=== PATIENT | female | born 1985 ===

== ENCOUNTER 2016-07-31 17:17 | Inpatient (IN) ==
[~2016-07-31 17:17] MED LIST: *HR* Nalbuphine 20 MG/ML AMPUL IVP PRN; Famotidine 20 MG/2 ML VIAL IVP PRN; Naloxone 0.4 MG/ML INJ IVP PRN; Ondansetron 4 MG/2 ML VIAL IVP PRN; Penicillin G Potassium 5,000,000 UNIT in D5% in Water (Mini-Bag+) 100 ML IVPB ONE
[2016-07-31] MEDS ORDERED: Ringers Solution, Lactated 1,000 ML ONE ×2 (17:18→18:13)
[2016-07-31 17:32] LABS: Basophils # 0.1 K/mcL (0.0-0.2); Basophils % 0.5 %; Eosinophils # 0.1 K/mcL (0.0-0.6); Eosinophils % 0.4 %; Hematocrit 36.1 % (35.3-44.9); Hemoglobin 12.2 g/dL (11.5-15.4); Immature Granulocytes % 4.6 % (0-4); Lymphocytes # 2.1 K/mcL (0.6-4.6); Mean Corpuscular HGB Conc 33.8 g/dL (31.6-35.5); Mean Corpuscular Hemoglobin 29.1 pg (28.0-33.3); Mean Corpuscular Volume 86.2 fL (83.0-100.0); Mean Platelet Volume 11.4 fL (9.4-12.4); Monocytes # 1.2 K/mcL (0.0-1.3); Monocytes % 7.2 %; Neutrophils # 11.9 K/mcL (1.6-8.9); Platelet Count 354 K/mcL (140-400); Red Blood Count 4.19 M/mcL (3.82-4.97); Red Cell Distribution Width 12.8 % (11.5-14.5); Segmented Neutrophils % 74.3 %
--- NOTE | 2016-07-31 17:32 | Anesthesia Evaluation PreOp ---
Date of Encounter: 07/31/16 Time of Encounter: 17:26 - Past History Planned Operation: vaginal del, , G1 ROM Cardiac History: Denies any Significant Hx Pulmonary History: Denies Any Significant HX HAND COLLATOR History: Denies Any Significant HX Other Medical History: Denies Any Significant HX Anesthesia History: No Prior Anesthetic Complications, Past Anesthesia : Yes (38wk) Anesthesia Exam - HEENT Pupil (Motor): Pupils equal Mallampati: II Teeth: Normal Oral Opening: Greater than 3 - HAND COLLATOR LOC: Oriented HAND COLLATOR Motor: Normal RUE, Normal LUE, Normal RLE, Normal LLE, Normal Face HAND COLLATOR Sensory: Normal: RUE, LUE, RLE, LLE, Face - Cardiac Rhythm: Regular Murmur: None - Pulmonary Breath Sounds: bilateral Clear Respiratory Effort: Symmetrical Anesthesia Assess/Plan ASA Score: 2 Modified [place] Scale for Level of Consciousness: Cooperative, oriented, and tranquil Anesthetic Plan: General, Regional Monitoring Plan: Standard Monitors
[2016-07-31] MEDS ORDERED: Epidural Premix (fent/bupiv) 110 ML EP ONE ×2 (17:33→22:59)
--- NOTE | 2016-07-31 17:34 | OB/GYN History & Physical ---
Date of Encounter: 07/31/16 Time of Encounter: 17:20 Assessment and Plan (1) 38 weeks gestation of Current visit: Yes Status: Acute Admit to labor and delivery for labor. Patient is GBS positive will start PCN prophylaxis Patient is in pain; may have nubain IV and/or epidural upon request. Patient educated on pain control options. Declines nubain at this time, requests epidural JENAE Amniotic fluid is clear Anticipate vaginal delivery POC per consult with Dr Garcia. (2) Spontaneous rupture of amniotic membranes Current visit: Yes Status: Acute Nitrazine positive Leaking large amount of clear fluid Positive for rupture of membranes History of Present Illness Chief complaint: Rupture of membranes at home HPI: Ms. Balderrama is a 31 year old at 38 weeks and 2 days gestation that presents to labor and delivery with complaints of gushing of clear vaginal fluid at 1530 this afternoon with cyclical abdominal pressure every few minutes. She states positive movement. She denies headache, vision changes, epigastric pain, and vaginal bleeding. She is GBS positive. Her blood type is A+. She is Rubella and Varicella immune and HepB, HIV, and RPR negative. She has had no complications with this per patient report and records. Obstetrical History - Pregnancies : 1 Para: 0 Term: 0 : 0 Ab's: 0 Livin Review of System OB All systems PM: reviewed and no additional remarkable complaints except as stated Exam - Constitutional Constitutional: well developed, well nourished, no acute distress, average body habitus - HEENT HEENT: Normocephaly, Mucus Membranes Moist - Neck Neck exam: full ROM, normal inspection - Lungs Respiratory exam: CTAB - Cardiovascular Cardiovascular exam: RRR, +S1, +S2 - Abdomen Abdomen: Present: bowel sounds normal, gravid, non tender - Extremities Extremities exam: normal capillary refill, normal inspection, radial pulses palpable and symetrical Deep Tendon Reflex Grade: 1+ Diminished - Vulva Vulva: bilateral: normal - Vagina Vagina: Present: normal moisture - Cervix Dilation: 4 (Per RN exam) Effacement: 90 (Per RN exam) Station: -1 - Uterus Uterus exam: Present: normal size (appropriate for gestational age. FHTs 140 with moderate variablility and 15x15 accels with no decels. Contractions every 2 - 3 minutes lasting 60 -90 seconds. Palpate mild/moderate. Uterus palpates soft between contractions. ), normal contour - Anus/Rectum Anus/Rectum: Present: normal perianal skin Results All other labs normal. - VTE Reasons for not Prescribing Prophylaxis: Treatment not Indicated - Low risk for VTE
--- NOTE | 2016-07-31 18:47 | Anesthesia Procedures ---
Date of Encounter: 07/31/16 Time of Encounter: 18:16
--- NOTE | 2016-07-31 18:50 | Anesthesia Procedures ---
Date of Encounter: 07/31/16 Time of Encounter: 18:16 Procedures: Anesthesia - Epidural/Spinal Patient ID/Chart reviewed: Yes Patient examined: Yes OB Eval: Gestational age: 38 OB Eval: : 1 OB Eval: Dilated at (cm): 4 OB Eval: Contractions: Non-stressed pattern Consent Obtained: Yes Supplemental Oxygen: None/Room Air Site Prep: Aseptic Technique, Sterile prep and drape, 0.5% Chlorhexidine/Alcohol Patient position: upright Local Anesthetic: Lidocaine 1% Amount of Local Anesthetic used: 2 Touhy Needle Gauge: 18 Touhy Needle Depth (cm): 5 Catheter Depth at Skin (cm): 9 Test Dose (1.5% Lido + Epi): Volume given (mls): 3 Test Dose Result: Negative Loading Dose: Other: 12 from solution Loading Dose Administered: Thru Catheter Infusion Med: 0.125% Bupivacaine w/ 2 mcg/ml Fentanyl Infusion Rate (mls/hr): [address]: Tegaderm, Tape Interspace Used: L3-L4 Loss of Resistance (RAFA): Yes (saline) Blood: No CSF: No Paresthesia: No Vitals + FHT's: vss though out, FHR per RN's stable
[2016-07-31] MEDS ORDERED: Penicillin G Potassium 2,500,000 UNIT in D5% in Water 100 ML IVPB SCH (20:00)
[2016-07-31] MEDS ORDERED: Oxytocin 20 units/ LR 1000 mL 20 UNIT/1,000 ML BAG IVC SCH (23:40)
--- NOTE | 2016-08-01 00:40 | OB/GYN Procedure Note ---
Delivery - Delivery Date: 08/01/16 Provider: Marilu Llanes (Dr Garcia present for proctoring) Intrapartum events: none Delivery induction: none Delivery monitor: external FHT, external uterine Anesthesia: epidural Estimated Blood Loss: 100 - (s) A Infant Delivery Date: 08/01/16 Delivery Time: 00:06 Presentation: vertex Position: AYALA Route of delivery: Gender: Male Viability: Viable at 1 minute: 8 at 5 mins: 9 Shoulder Dystocia: not encountered Placenta: spontaneous Cord: nuchal cord, 3 umbilical vessels, delivered through nuchal - Repair Episiotomy: none Laceration Description: Periurethral (bilateral hemostatic) - Complications Delivery complications: none Delivery comments: Patient progressed to complete and labored down until +2 station. Pushed with coached pushing until of viable vigorous male in the AYALA position. Loose nuchal cord encountered with delivery. Delivered through nuchal cord with shoulders and body delivering easily with maternal effort. No meconium and no shoulder dystocia encountered. Infant placed on maternal abdomen. Cord clamped and cut when pulsations stopped. Apgars 8 and 9 at 1 and 5 minutes of age respectively. Upon inspection bilateral hemostatic periurethral lacerations present - left to heal by second intention. Fundus firm, midline, 1 above pubic bone with scant lochia rubra. Infant and mother stable in recovery. EBL 100mL. Dr Garcia present for delivery for proctoring. - Disposition Mom disposition: stable in LDR [place] disposition: stable in LDR - Comments Comments: Weight deferred for gaytan hour of skin to skin.
[2016-08-01] MEDS ORDERED: Acetaminophen 325 MG TABLET PO PRN (00:43)
[2016-08-01] MEDS ORDERED: Oxytocin 20 units/ LR 1000 mL 20 UNIT/1,000 ML BAG IVC SCH (00:43)
[2016-08-01] MEDS ORDERED: Oxytocin 20 units/ LR 1000 mL 20 UNIT/1,000 ML BAG IVC ONE (00:43)
[2016-08-01] MEDS: Prenatal Vit/FA 1 EACH TABLET PO SCH (08:05)
[2016-08-01] MEDS: Ibuprofen 600 MG TABLET PO PRN (08:05)
[2016-08-01] MEDS ORDERED: Benzocaine/Menthol 56 GM AEROSOL SPRAY TP ONE (14:35)
[2016-08-02 08:24] VITALS: BP 128/82
[2016-08-02] MEDS: Ibuprofen 600 MG TABLET PO PRN (09:39)
[2016-08-02] MEDS: Prenatal Vit/FA 1 EACH TABLET PO SCH (09:39)
--- NOTE | 2016-08-02 10:26 | Discharge Summary ---
Date of Encounter: 08/02/16 Time of Encounter: 10:24 - Discharge Diagnosis (1) Vaginal delivery Priority: Primary Status: Acute Comments: Meeting all milestones, pain well managed, desires discharge - Discharge Medications Prescriptions: Ibuprofen [Motrin] 600 mg PO Q6HR PRN #60 tablet PRN Reason: Mild To Moderate Pain Docusate [Colace] 100 mg PO BID #60 capsule Home Medications: Formula Tablet 07/31/16 [History] Acetaminophen [Tylenol] 650 mg PO Q6HR PRN #0 tablet 08/02/16 [Rx] Docusate [Colace] 100 mg PO BID #60 capsule 08/02/16 [Rx] Ibuprofen [Motrin] 600 mg PO Q6HR PRN #60 tablet 08/02/16 [Rx] Allergies/Adverse Reactions: Allergies No Known Allergies Allergy (Verified 07/31/16 19:07) Data Procedures and tests throughout hospitalization: Laboratory Tests 07/31/16 17:21 WBC 16.0 H RBC 4.19 Hgb 12.2 Hct 36.1 MCV 86.2 MCH 29.1 MCHC 33.8 RDW 12.8 Plt Count 354 MPV 11.4 Immature Gran % 4.6 H Seg Neutrophils % 74.3 Lymphocytes % 13.0 Monocytes % 7.2 Eosinophils % 0.4 Basophils % 0.5 Neutrophils # 11.9 H Lymphocytes # 2.1 Monocytes # 1.2 Eosinophils # 0.1 Basophils # 0.1 Date of admission: 07/31/16 17:17 Primary care physician: TONG NO Consults: 08/01/16 00:43 Consult to Professional Development Instructor [CONS] Routine Comment: Vaginal delivery, consult needed Discharging clinician: Virginia Sue Anticipated date of discharge: 08/02/16 - Patient Status Disposition: Home, Self-Care Condition: Good Functional capacity at discharge: independent ambulation Overall status at discharge: patient is back to baseline - Discharge Instructions Follow Up With: NO,PCP [Primary Care Provider] - - Diet and Activity Activity: resume usual activities as tolerated Diet: regular diet Hospital Course Reason for admission: active labor, rupture of membranes Delivery: Episiotomy: none Laceration: other (periuretherl ) Other procedures: none complications: none Discharge diagnosis: IUP at term delivered baby: male Hospital course: Delivery - Delivery Date: 08/01/16 Provider: Marilu Llanes (Dr Garcia present for proctoring) Intrapartum events: none Delivery induction: none Delivery monitor: external FHT, external uterine Anesthesia: epidural Estimated Blood Loss: 100 - (s) Infant A Infant Delivery Date: 08/01/16 Delivery Time: 00:06 Presentation: vertex Position: AYALA Route of delivery: Gender: Male Viability: Viable at 1 minute: 8 at 5 mins: 9 Shoulder Dystocia: not encountered Placenta: spontaneous Cord: nuchal cord, 3 umbilical vessels, delivered through nuchal - Repair Episiotomy: none Laceration Description: Periurethral (bilateral hemostatic) - Complications Delivery complications: none Delivery comments: Patient progressed to complete and labored down until +2 station. Pushed with coached pushing until of viable vigorous male in the AYALA position. Loose nuchal cord encountered with delivery. Delivered through nuchal cord with shoulders and body delivering easily with maternal effort. No meconium and no shoulder dystocia encountered. Infant placed on maternal abdomen. Cord clamped and cut when pulsations stopped. Apgars 8 and 9 at 1 and 5 minutes of age respectively. Upon inspection bilateral hemostatic periurethral lacerations present - left to heal by second intention. Fundus firm, midline, 1 above pubic bone with scant lochia rubra. Infant and mother stable in recovery. EBL 100mL. Dr Garcia present for delivery for proctoring. - Disposition Mom disposition: stable in Post and appropriate for discharge Time Attestation: Total time spent providing and/or coordinating discharge services: Exam - Constitutional Vitals: Temp Pulse Resp BP Pulse Ox 97.5 F L 70 12 128/82 97 08/02/16 08:00 08/02/16 09:46 08/02/16 09:46 08/02/16 08:00 08/02/16 08:00 General appearance IM: A&O X 3 - Respiratory Respiratory exam: Present: CTAB - Cardiovascular Cardiovascular exam IM: Present: RRR, +S1, +S2 - GI/Abdominal GI/Abdominal exam IM: normal bowel sounds, soft Incision: normal, dry, intact - Uterine Tone: Firm Uterus Position: At Umbilicus, Midline - Extremities Exam Extremities exam IM: Present: normal capillary refill, normal inspection - Neurological Exam Neurological exam: alert, normal gait, oriented X3 - Psychiatric Additional comments: Reports good mood
== END 2016-08-02 18:50 | disposition home or self-care (01) | DRG 775 ==
LOC: 1NENULAB → 1NENUOBS 08-01 04:40

== ENCOUNTER 2021-08-31 08:02 | Inpatient (IN) ==
[2021-08-31 07:58] LABS: Basophils # 0.1 K/mcL (0.0-0.2); Basophils % 0.6 %; Eosinophils # 0.1 K/mcL (0.0-0.6); Eosinophils % 0.5 %; Hematocrit 39.3 % (35.3-44.9); Hemoglobin 13.4 g/dL (11.5-15.4); Immature Granulocytes % 2.8 % (0-4); Lymphocytes # 2.2 K/mcL (0.6-4.6); Lymphocytes % 12.5 %; Mean Corpuscular HGB Conc 34.1 g/dL (31.6-35.5); Mean Corpuscular Hemoglobin 29.9 pg (28.0-33.3); Mean Corpuscular Volume 87.7 fL (83.0-100.0); Monocytes # 1.1 K/mcL (0.0-1.3); Monocytes % 6.5 %; Neutrophils # 13.4 K/mcL (1.6-8.9); Platelet Count 372 K/mcL (140-400); Red Blood Count 4.48 M/mcL (3.82-4.97); Red Cell Distribution Width 13.1 % (11.5-14.5); Segmented Neutrophils % 77.1 %; White Blood Count 17.4 K/mcL (4.3-11.1)
[~2021-08-31 08:02] MED LIST changes: -*HR* Nalbuphine 20 MG/ML AMPUL IVP PRN; +Azithromycin 500 MG in 0.9 % Sodium Chloride 250 ML IVPB PRN; +Lidocaine 1% 20 ML MDV INFILT PRN; +Metoclopramide 10 MG/2 ML VIAL IVP PRN; +Oxytocin 30 UNIT/503 ML BAG IVC ONE; -Penicillin G Potassium 5,000,000 UNIT in D5% in Water (Mini-Bag+) 100 ML IVPB ONE; +Ringers Solution, Lactated 1,000 ML IVC SCH; +Ringers Solution, Lactated 1,000 ML ONE
[2021-08-31] MEDS ORDERED: *HR* FentaNYL (PF) 100 MCG/2 ML VIAL EP ONE (09:10)
[2021-08-31] MEDS ORDERED: EPHEDrine 50 MG/ML VIAL IVP PRN (09:10)
[2021-08-31] MEDS ORDERED: Ropivacaine/PF 0.2% 20 ML VIAL EP ONE (09:10)
[2021-08-31] MEDS ORDERED: Ropivacaine/PF 0.2% 20 ML VIAL ONE (09:12)
[2021-08-31] MEDS ORDERED: *HR* FentaNYL (PF) 100 MCG/2 ML VIAL ONE (09:12)
[2021-08-31] MEDS ORDERED: Bupivacaine-MPF 0.25% 10 ML VIAL ONE (09:13)
[2021-08-31] MEDS ORDERED: Epidural Premix (fent/bupiv) 110 ML EP SCH (09:15)
[2021-08-31] MEDS ORDERED: Oxytocin 30 UNIT/503 ML BAG IVC SCH ×2 (11:15→19:30)
[2021-08-31] MEDS ORDERED: Lanolin 7 G OINT...G. TP PRN (19:16)
[2021-08-31] MEDS ORDERED: Ondansetron ODT 4 MG TAB.RAPDIS SL PRN (19:16)
[2021-08-31] MEDS ORDERED: Benzocaine/Menthol 56 GM AEROSOL SPRAY TP PRN (19:16)
[2021-08-31] MEDS: Acetaminophen 325 MG TABLET PO SCH (19:42)
[2021-08-31] MEDS: Famotidine 20 MG TABLET PO SCH (20:43)
[2021-09-01] MEDS: Acetaminophen 325 MG TABLET PO SCH ×3 (03:31→15:33)
[2021-09-01] MEDS: Ibuprofen 600 MG TABLET PO SCH ×4 (03:31→15:33)
[2021-09-01 04:33] VITALS: O2SAT 98
[2021-09-01 08:24] VITALS: BP 101/62; PULSE 72; TEMP 98.4
[2021-09-01] MEDS ORDERED: Prenatal Vit/FA 1 EACH TABLET PO SCH (09:00)
[2021-09-01] MEDS: Famotidine 20 MG TABLET PO SCH (09:29)
== END 2021-09-01 15:40 | disposition home or self-care (01) | DRG 807 ==
LOC: 1NENULAB → 1NENUOBS 16:04
PROVIDERS: ADMIT Obstetrics & Gynecology; ATTEND Obstetrics & Gynecology